=== PATIENT | female | born 2000 | race Two or more races ===

== ENCOUNTER 2022-03-09 16:24 | Emergency (ER) | payer OTHER ==
[~2022-03-09] VITALS: Ht 165.1 cm; Wt 80.7 kg
== END 2022-03-09 18:24 | disposition home or self-care (01) ==
LOC: ER 16:24
DX: N39.0 Urinary tract infection, site not specified (principal); U07.1 COVID-19

== ENCOUNTER 2022-03-11 10:15 | Outpatient (CLI) | payer OTHER | END 2022-03-11 11:03 | disposition home or self-care (01) | LOC: ASH CLINIC 10:15 | DX: U07.1 COVID-19 (principal) ==

== ENCOUNTER 2022-04-19 16:56 | Outpatient (CLI) | payer OTHER | END 2022-04-19 16:57 | disposition home or self-care (01) | LOC: LAB 16:56 | DX: N39.0 Urinary tract infection, site not specified (principal) ==

== ENCOUNTER 2022-04-27 15:21 | Outpatient (CLI) | payer OTHER | END 2022-04-27 15:26 | disposition home or self-care (01) | LOC: PPH VACUNA 15:21 | PROVIDERS: ATTEND Emergency Medicine Pediatric Emergency Medicine | DX: Z23 Encounter for immunization (principal) ==

== ENCOUNTER → 2022-06-16 | Emergency (ER) | payer OTHER ==
[~2022-06-16] VITALS: Ht 165.1 cm; Wt 83.0 kg
== END | disposition home or self-care (01) ==
LOC: ER 09:34
DX: N39.0 Urinary tract infection, site not specified (principal); R30.0 Dysuria